=== PATIENT | male | born 1945 | race Caucasian/White ===

== ENCOUNTER 2017-07-13 11:47 | Emergency (ER) | payer MEDICARE, OTHER ==
[~2017-07-13] VITALS: Ht 188 cm; Wt 85.0 kg
[2017-07-13 11:51] VITALS: BP 168/77; PULSE 105; RESP 18; TEMP 97.3; O2SAT 97
[2017-07-13] MEDS ORDERED: DIGO0.12 PO (12:05)
[2017-07-13] MEDS ORDERED: ASPI81TA23 PO (12:05)
[2017-07-13] MEDS ORDERED: LEVO50TA4 PO (12:05)
--- NOTE | 2017-07-13 12:25 | PD ---
HPI Chief Complaint: Dizziness Time Seen by Provider: 12:03 Travel History International Travel<30 days: No Contact w/Intl Traveler<30days: No Traveled to known affect area: No History of Present Illness HPI This patient woke up this morning feeling dizzy and lightheaded. It's not vertigo. No sensation of movement. No syncope or headache or chest pain. Symptoms severity is mild to moderate. It is intermittent and sort of waxes and wanes. He is hypertensive 180s systolic which is never been an issue for him before. No neurologic complaint such as muscle weakness or sensory loss or speech slurring or confusion etc. Duration is 6 hours. No alleviating factors. No exacerbating factors. PFSH Past Medical History Atrial Fibrillation: Yes Cardiovascular Problems: Yes (AFIB) Diminished Hearing: No Tetanus Vaccination: < 5 Years Influenza Vaccination: No ?: Not Past Surgical History Surgical History: No Previous Surgery Social History Alcohol Use: Yes (BEER) Tobacco Use: No Substance Use: No Allergies-Medications (Allergen,Severity, Reaction): Coded Allergies: No Known Allergies (Unverified , 07/13/17) Reported Meds & Prescriptions Reported Meds & Active Scripts Active Reported Levothyroxine (Levothyroxine Sodium) 50 Mcg Tab 50 Mcg PO DAILY Digoxin 0.125 Mg Tab 0.125 Mg PO DAILY Aspirin EC (Aspirin) 81 Mg Tabdr 81 Mg PO DAILY Review of Systems General / Constitutional: No: Fever Eyes: No: Visual changes HENT: Positive: Lightheadedness, No: Headaches Cardiovascular: No: Chest Pain or Discomfort Respiratory: No: Shortness of Breath Gastrointestinal: No: Abdominal Pain Genitourinary: No: Dysuria Musculoskeletal: No: Pain Skin: No Rash Neurologic: Positive: Dizziness, No: Weakness Psychiatric: No: Depression Endocrine: No: Polydipsia Hematologic/Lymphatic: No: Easy Bruising Physical Exam Narrative GENERAL: Well-nourished, well-developed patient in no apparent distress. SKIN: Focused skin assessment reveals no rash and nodules. Skin is Warm and dry. HEAD: Atraumatic. Normocephalic. EYES: Pupils equal and round. No scleral icterus. No injection or drainage. ENT: No nasal bleeding or discharge. Mucous membranes pink and moist. NECK: Trachea midline. No JVD. CARDIOVASCULAR: Regular rate and rhythm. No murmur appreciated. RESPIRATORY: No accessory muscle use. Clear to auscultation. Breath sounds equal bilaterally. GASTROINTESTINAL: Abdomen soft, non-tender, nondistended. Hepatic and splenic margins not palpable. MUSCULOSKELETAL: No obvious deformities. No clubbing. No cyanosis. No edema. NEUROLOGICAL: Awake and alert. No obvious cranial nerve deficits. Motor grossly within normal limits. Normal speech. PSYCHIATRIC: Appropriate mood and affect; insight and judgment normal. Data Data Last Documented VS Vital Signs Date Time Temp Pulse Resp B/P (MAP) Pulse Ox O2 Delivery O2 Flow Rate FiO2 07/13/17 11:56 105 18 99 Room Air 07/13/17 11:51 97.3 168/77 (107) Orders Orders Iv Access Insert/Monitor (07/13/17 12:14) Complete Blood Count With Diff (07/13/17 12:14) Basic Metabolic Panel (Bmp) (07/13/17 12:14) Contract Administrator / Telemetry [email or web address] (07/13/17 12:14) Electrocardiogram (07/13/17 ) Labs Laboratory Tests Test 07/13/17 12:23 White Blood Count 6.6 TH/MM3 Red Blood Count 4.48 MIL/MM3 Hemoglobin 14.1 GM/DL Hematocrit 41.9 % Mean Corpuscular Volume 93.6 FL Mean Corpuscular Hemoglobin 31.3 PG Mean Corpuscular Hemoglobin Concent 33.5 % Red Cell Distribution Width 13.5 % Platelet Count 151 TH/MM3 Mean Platelet Volume 9.3 FL Neutrophils (%) (Auto) 80.7 % Lymphocytes (%) (Auto) 12.7 % Monocytes (%) (Auto) 6.1 % Eosinophils (%) (Auto) 0.0 % Basophils (%) (Auto) 0.5 % Neutrophils # (Auto) 5.3 TH/MM3 Lymphocytes # (Auto) 0.8 TH/MM3 Monocytes # (Auto) 0.4 TH/MM3 Eosinophils # (Auto) 0.0 TH/MM3 Basophils # (Auto) 0.0 TH/MM3 CBC Comment DIFF FINAL Differential Comment Blood Urea Nitrogen 13 MG/DL Creatinine 0.81 MG/DL Random Glucose 157 MG/DL Calcium Level 8.7 MG/DL Sodium Level 139 MEQ/L Potassium Level 3.9 MEQ/L Chloride Level 106 MEQ/L Carbon Dioxide Level 27.6 MEQ/L Anion Gap 5 MEQ/L Estimat Glomerular Filtration Rate 94 ML/MIN MDM Medical Decision Making Medical Screen Exam Complete: Yes Emergency Medical Condition: Yes Medical Record Reviewed: Yes Differential Diagnosis Cardiac arrhythmia, vertigo, labyrinthitis Narrative Course I have reviewed the patient's electronic medical record. Patient is neurologically intact. IV placed I reviewed his EKG which shows sinus rhythm with occasional CBC. He is left bundle-branch block. Extended cardiac monitoring reveals sinus rhythm with occasional PVC CBC is normal Metabolic profile is normal On recheck the patient feels well. He is neurologically intact and no evidence of CVA or ACS. Etiology of his lightheadedness is unclear but is stable for outpatient follow-up. I've advised him to track and record his blood pressure daily and discuss this with his physician. He usually has normal pressures. Diagnosis Primary Impression: Lightheadedness Additional Impression: Accelerated hypertension Additional Instructions: The patient was advised to follow up with their physician and return if they worsen. Check and record blood pressure daily Med/Other Pt SpecificInfo: Other Disposition: 01 DISCHARGE HOME Condition: Stable Antonio Carias MD Jul 13, 2017 12:25
[2017-07-13 12:35] LABS: AUTOMATED NEUTROPHIL # 5.3 TH/MM3 (1.8-7.7); BASOPHIL % 0.5 % (0.0-2.0); HEMATOCRIT 41.9 % (39.0-51.0); HEMO FLAGS DIFF FINAL; LYMPH % 12.7 % (9.0-44.0); LYMPHOCYTE # 0.8 TH/MM3 (1.0-4.8); MEAN CELL VOLUME 93.6 FL (80.0-100.0); MEAN CORPUSCULAR HEMOGLOBIN 31.3 PG (27.0-34.0); MEAN CORPUSCULAR HGB CONC 33.5 % (32.0-36.0); MONO % 6.1 % (0.0-8.0); NEUT % 80.7 % (16.0-70.0); PLATELET COUNT 151 TH/MM3 (150-450); RED BLOOD COUNT 4.48 MIL/MM3 (4.50-5.90); RED CELL DISTRIBUTION WIDTH 13.5 % (11.6-17.2); WHITE BLOOD COUNT 6.6 TH/MM3 (4.0-11.0)
[2017-07-13 13:00] LABS: BICARBONATE 27.6 MEQ/L (21.0-32.0); POTASSIUM 3.9 MEQ/L (3.5-5.1)
--- NOTE | 2017-07-14 17:43 | EKG ---
Date Performed: 07/13/2017 Time Performed: 12:01:48 PTAGE: 71 years EKG: Sinus rhythm WITH OCCASIONAL VENTRICULAR PREMATURE COMPLEXES MARKED LEFT AXIS DEVIATION LEFT BUNDLE BRANCH BLOCK ABNORMAL ECG NO PREVIOUS TRACING DOCTOR: Braxton Vásquez Interpretating Date/Time 07/14/2017 17:42:17
== END 2017-07-13 14:32 | disposition home or self-care (01) ==
LOC: NEPE 11:47
DX: R42 Dizziness and giddiness (principal); I10 Essential (primary) hypertension; I44.7 Left bundle-branch block, unspecified; I48.91 Unspecified atrial fibrillation; R94.31 Abnormal electrocardiogram [ECG] [EKG]; Z79.899 Other long term (current) drug therapy
CPT/HCPCS: 80048; 85025; 93005; 99285